=== PATIENT | male | born 1965 ===

== ENCOUNTER 2018-04-15 11:16 | Emergency (ER) | payer BC ==
[2018-04-15 11:34] VITALS: BP 161/98
--- NOTE | 2018-04-15 11:47 | UC ---
Skin Complaint HPI - HPI Summary HPI Summary: WOKE UP YESTERDAY MORNING WITH INTENSELY ITCHY PALMS AND VOLAR ASPECT/SIDES OF FINGERS. SKIN IS BRIGHT RED. HAS SCATTERED 1-2 MM BLISTER TYPE LESIONS. NO FEVER. 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 NO SWELLING OR JOINT DISCOMFORT. NO FOOT INVOLVEMENT. - History of Current Complaint Chief Complaint: [facility] Time Seen by Provider: 04/15/18 11:42 Stated Complaint: SKIN COMPLAINT Hx Obtained From: Patient Onset/Duration: Sudden Onset, Lasting Days, Still Present Timing: Constant Onset Severity: Moderate Current Severity: Moderate Pain Intensity: 0 Pain Scale Used: 0-10 Numeric Character: Pruritus, Redness Aggravating Factor(s): Touch Alleviating Factor(s): Nothing Associated Signs & Symptoms: Negative: Nausea, Fever, Chills, Cough, Throat Tightening, Tenderness - Allergy/Home Medications Allergies/Adverse Reactions: Allergies Allergy/AdvReac Type Severity Reaction Status Date / Time No Known Allergies Allergy Verified 04/15/18 11:34 Review of Systems Constitutional: Negative Skin: Rash Respiratory: Negative Cardiovascular: Negative Gastrointestinal: Negative All Other Systems Reviewed And Are Negative: Yes PMH/Surg Hx/FS Hx/Imm Hx Previously Healthy: Yes - Surgical History Surgical History: Yes Surgery Procedure, Year, and Place: left shoulder hernia - Family History Known Family History: Negative: Hypertension - Social History Alcohol Use: Daily Substance Use Type: None Smoking Status (MU): Never Smoked Tobacco Physical Exam Triage Information Reviewed: Yes Appearance: Well-Appearing, No Pain Distress, Well-Nourished Vital Signs: Initial Vital Signs Temp 97.8 F 04/15/18 11:32 Pulse 73 04/15/18 11:32 Resp 16 04/15/18 11:32 BP 161/98 04/15/18 11:32 Pulse Ox 99 04/15/18 11:32 Vital Signs Reviewed: Yes Eyes: Positive: Conjunctiva Clear ENT: Positive: Hearing grossly normal Neck: Positive: Supple Respiratory: Positive: No respiratory distress, No accessory muscle use Cardiovascular: Positive: Pulses Normal Abdomen Description: Positive: Soft Musculoskeletal: Positive: No Edema Neurological: Positive: Alert Psychological: Positive: Age Appropriate Behavior Skin: Positive: Other - PALMS AND VOLAR SURFACES AND SIDES OF FINGERS BRIGHT RED. FEW SCATTERED 1-2 MM LSEIONS. Course/Dx - Diagnoses Provider Diagnoses: DYSHIDROTIC ECZEMA Discharge - Sign-Out/Discharge Documenting (check all that apply): Patient Departure All imaging exams completed and their final reports reviewed: No Studies - Discharge Plan Condition: Stable Disposition: HOME Prescriptions: predniSONE TAB* [Deltasone 10 MG TAB*] 10 mg PO SEE INSTRUCTIONS #68 tab Referrals: No Primary Care Phys,NOPCP [Primary Care Provider] - Additional Instructions: DYSHIDROTIC ECZEMA - Dyshidrotic dermatitis (pompholyx or dyshidrosis) is an intensely pruritic, chronic and recurrent, vesicular dermatitis of unknown etiology that typically involves the palms and soles and sides of the fingers. Clinical manifestations - A history of acute episodes of intense itching on the palms and/or soles that progress to multiple small vesicles is typical. Recurrent episodes alternating with disease-free periods are common. It is characterized by the sudden eruption of intensely itchy vesicles on the palms, soles, or sides of the fingers. The vesicles persist for several weeks, then dry up, flake and eventually resolve. Episodes may recur at intervals of three to four weeks for months or years. The typical physical finding is the presence of multiple small vesicles on the palms or soles, especially along the sides of the fingers and toes. Redness, flaking, cracking, and fissuring may be seen in older lesions. The diagnosis of dyshidrotic eczema is usually based upon the clinical appearance and location of lesions, symptoms, and history Treatment - Avoidance of irritants or exacerbating factors is important for most patients with dyshidrotic eczema. Medium to potent topical corticosteroids can control outbreaks in mild cases. Limited courses of oral corticosteroids are occasionally required in difficult cases. Local treatments with PUVA, or UVA are helpful in those who have not responded to other measures. TAKE PREDNISONE FOLLOWS: Prednisone tab 10 mg Label: 5 by mouth daily x 7 days, then 3 by mouth daily x 5 days, then 2 by mouth daily x 5 days, then 1 by mouth daily x 5 days, then half tab daily until gone FOLLOW-UP WITH DERM IF NOT IMPROVING DERMATOLOGY IN [place] DR[facility] LAURA FRIED [facility], [facility] [address]; [address] [place] [address] Dr. Sachi Almendarez Address: [address] [place] [address] DR[facility] DEVON RAGSDALE [facility] [address] [place] [address] [address] [place] [address] Denisha Muhammad D[facility]MATOLOGY [place] DR[address] SANTOS TORRES [phone] CALL THE NUMBER BELOW FOR ASSISTANCE IN ESTABLISHING WITH A PCP An additional resource available to assist in finding the appropriate physician for your health care needs is the [facility] ([facility] Holley). You may contact them by calling [phone]. - Billing Disposition and Condition Condition: STABLE Disposition: Home
== END 2018-04-15 12:19 | disposition home or self-care (01) ==
LOC: UCEAST 11:16
DX: L30.1 Dyshidrosis [pompholyx] (principal)
CPT/HCPCS: 99212; G0463